=== PATIENT | male | born 1955 | race Two or more races ===

== ENCOUNTER 2017-03-15 15:05 | Outpatient (CLI) | payer OTHER ==
[~2017-03-15 15:05] MED LIST: ALLEGRA ALLERG180 MG PO; AVODART0.5 MG; AVODART0.5 MG PO; COZAAR100 MG; COZAAR100 MG PO; GILTUSS TR TAB1 EACH PO; MEDROL4 MG PO; TAMS0.4C; TAMS0.4C PO; TESSALON PERLE100 MG PO; TESSALON200 MG PO; ZITHROMAX500 MG PO; ZYRTEC10 MG PO
== END 2017-03-15 15:13 | disposition home or self-care (01) ==
LOC: LAB 15:05
DX: R97.20 Elevated prostate specific antigen [PSA] (principal); R31.9 Hematuria, unspecified

== ENCOUNTER 2017-11-09 10:04 | Outpatient (CLI) | payer OTHER | END 2017-11-09 10:17 | disposition home or self-care (01) | LOC: LAB 10:04 | DX: Z11.3 Encounter for screening for infections with a predominantly sexual mode of transmission (principal) ==

== ENCOUNTER 2018-06-08 08:22 | Outpatient (CLI) | payer OTHER | END 2018-06-08 12:03 | disposition home or self-care (01) | LOC: LAB 08:22 | DX: R10.13 Epigastric pain (principal); K30 Functional dyspepsia; E78.2 Mixed hyperlipidemia; Z13.29 Encounter for screening for other suspected endocrine disorder; Z12.11 Encounter for screening for malignant neoplasm of colon ==

== ENCOUNTER 2018-06-13 14:41 | Outpatient (CLI) | payer OTHER | END 2018-06-13 15:29 | disposition home or self-care (01) | LOC: LAB 14:41 | DX: E11.9 Type 2 diabetes mellitus without complications (principal); I10 Essential (primary) hypertension; D68.8 Other specified coagulation defects; N39.0 Urinary tract infection, site not specified ==

== ENCOUNTER 2018-07-14 14:29 | Outpatient (CLI) | payer OTHER | END 2018-07-14 14:35 | disposition home or self-care (01) | LOC: LAB 14:29 | DX: R97.20 Elevated prostate specific antigen [PSA] (principal); R31.1 Benign essential microscopic hematuria ==

== ENCOUNTER 2018-09-06 07:10 | Outpatient (CLI) | payer OTHER | END 2018-09-06 08:00 | disposition home or self-care (01) | LOC: NUCLEAR 07:10 | DX: I25.10 Atherosclerotic heart disease of native coronary artery without angina pectoris (principal); I67.89 Other cerebrovascular disease | CPT/HCPCS: 93880; 78452; 93017; A9500; J0153 ==

== ENCOUNTER 2019-01-30 08:00 | Outpatient (CLI) | payer OTHER | END 2019-01-30 15:00 | disposition home or self-care (01) | LOC: LAB 08:00 | DX: E78.89 Other lipoprotein metabolism disorders (principal); Z00.00 Encounter for general adult medical examination without abnormal findings; E55.9 Vitamin D deficiency, unspecified; R10.84 Generalized abdominal pain; R10.2 Pelvic and perineal pain; N42.0 Calculus of prostate; M54.89 Other dorsalgia ==

== ENCOUNTER → 2019-02-23 | Outpatient (CLI) | payer OTHER | END | disposition home or self-care (01) | LOC: TOM 07:58 | DX: R10.84 Generalized abdominal pain (principal) ==